=== PATIENT | female | born 1995 | race Caucasian/White ===

== ENCOUNTER 2016-10-25 03:04 | Emergency (ER) | payer OTHER ==
[~2016-10-25] VITALS: Ht 157.5 cm; Wt 45.8 kg
[2016-10-25 03:48] LABS: URINE SOURCE CLEAN CATCH
[2016-10-25 03:51] LABS: URINE APPEARANCE CLOUDY; URINE BILIRUBIN NEG (NEG); URINE BLOOD 3+ (NEG); URINE COLOR ORANGE; URINE GLUCOSE NEG (NEG); URINE KETONE NEG (NEG); URINE LEUKOCYTE ESTERASE 1+ (NEG); URINE NITRATE NEG (NEG); URINE PH 5.5 (5-8); URINE PROTEIN 1+ (NEG); URINE SPECIFIC GRAVITY 1.029 (1.003-1.035)
[2016-10-25 03:54] LABS: CULTURE INDICATED? YES; URBCS1 AUWI INNUM /[HPF] (0-2); URINE BACTERIA AUWI NEG (NEGATIVE); URINE SQUAMOUS EPITHELIAL CELL FEW /[HPF]
[2016-10-26 21:25] LABS: CHLAMYDIA TRACH Not Detected (Not Detected); N GONOR Not Detected (Not Detected)
== END 2016-10-25 04:30 | disposition home or self-care (01) ==
LOC: CED 03:04
PROVIDERS: Nurse Practitioner
DX: N94.6 Dysmenorrhea, unspecified (principal); F17.200 Nicotine dependence, unspecified, uncomplicated; Z91.040 Latex allergy status
CPT/HCPCS: 81003; 84703; 87086; 87491; 87591; 87808; 87905; 99284